=== PATIENT | male | born 1960 | race Two or more races ===

== ENCOUNTER 2019-06-17 07:49 | Day surgery (SDC) | payer BC ==
[2019-06-17] VITALS (10 sets, daily range): BP systolic 113–128; BP diastolic 68–83
[~2019-06-17] VITALS: Ht 172.7 cm; Wt 81.6 kg
[~2019-06-17 07:49] MED LIST: LR 1000ml 1,000 ML IVLG SCH
[2019-06-17] MEDS ORDERED: MULTIVITAMINS1 EAC2 ORAL (08:14)
[2019-06-17] MEDS ORDERED: Midazolam 2mg/2ml Inj ONE (08:36)
[2019-06-17] MEDS ORDERED: fentaNYL 100 mcg/2 mL IV ONE (08:36)
[2019-06-17] MEDS ORDERED: Propofol 200mg/20ml IV ONE (09:00)
[2019-06-17] MEDS ORDERED: LR 1000ml ONE (09:00)
--- NOTE | 2019-06-17 09:05 | Pre-Procedure Note/Attestation ---
Pre-Procedure Note/Attestation Complete Prior to Procedure Planned Procedure: not applicable Procedure Narrative: colon Indications for Procedure Pre-Operative Diagnosis: h/o polyps Attestation I attest that I discussed the nature of the procedure; its benefits; risks and complications; and alternatives (and the risks and benefits of such alternatives ), prior to the procedure, with the patient (or the patient's legal automobile rental representative). I attest that, if there was a reasonable possibility of needing a blood transfusion, the patient (or the patient's legal automobile rental representative) was given the [facility] standardized written summary, pursuant to the [place] Blood Safety Act ([place] Health and Safety Code # 1645, as amended). I attest that I re-evaluated the patient just prior to the surgery and that there has been no change in the patient's H&P, except as documented below: Juanpablo Vang MD Jun 17, 2019 09:05
--- NOTE | 2019-06-17 09:05 | Anethesia Preoperative Eval ---
Anesthesia Pre-op PMH/ROS General Date of Evaluation: Jun 17, 2019 Time of Evaluation: 09:00 Anesthesiologist: Teri ASA Score: ASA 2 Mallampati Score Class I : Soft palate, uvula, fauces, pillars visible Class II: Soft palate, uvula, fauces visible Class III: Soft palate, base of uvula visible Class IV: Only hard plate visible Mallampati Classification: Class II Surgeon: Dean Diagnosis: Colon CA screening Surgical Procedure: Cololnoscopy Anesthesia History: none Family History: no anesthesia problems Allergies: Coded Allergies: No Known Allergies (Unverified , 06/17/19) Medications: see eMAR Patient NPO?: Yes Past Medical History Cardiovascular: Denies: HTN, CAD, [place], valve dz, arrhythmia, other Pulmonary: Denies: asthma, COPD, AMRITA, other Gastrointestinal/Genitourinary: Reports: GERD; Denies: CRI, ESRD, other Neurologic/Psychiatric: Denies: dementia, CVA, depression/anxiety, TIA, other Endocrine: Denies: DM, hypothyroidism, steroids, other HEENT: Denies: cataract (L), cataract (R), glaucoma, [place] (L), [place] (R), other Musculoskeletal/Integumentary: Denies: OA, RA, DJD, DDD, edema, other PMH Narrative: as above PSxH Narrative: None Anesthesia Pre-op Phys. Exam Physician Exam Last Vital Signs Date Time Temp Pulse Resp B/P (MAP) Pulse Ox O2 Delivery O2 Flow Rate FiO2 06/17/19 08:17 Room Air 06/17/19 08:14 97.2 79 18 128/83 99 Constitutional: NAD Neurologic: CN 2-12 intact Cardiovascular: RRR, no M/R/G Respiratory: CTA Gastrointestinal: S/NT/ND Airway Exam Mallampati Score: Class II MO: full ROM: full Teeth: intact Dentures: no upper, no lower Anesthesia Pre-op A/P Studies Pre-op Studies: EKG - NSR Risk Assessment & Plan Assessment: ASA 2 Plan: MAC Status Change Before Surgery: No Hari Williamson MD Jun 17, 2019 09:05
--- NOTE | 2019-06-17 09:05 | Short Stay Surgery H&P ---
History of Present Illness History of Present Illness Chief Complaint see typed H&P attached HPI Norbertelliot Gutierrez is a 58 year old male who was admitted on for Colon Screening Patient History Allergies: Coded Allergies: No Known Allergies (Unverified , 06/17/19) Medication History Scheduled Multivitamins* (Multivitamins*), 1 TAB ORAL DAILY, (Reported) Physical Exam Vital Signs Last Vital Signs Date Time Temp Pulse Resp B/P (MAP) Pulse Ox O2 Delivery O2 Flow Rate FiO2 06/17/19 08:17 Room Air 06/17/19 08:14 97.2 79 18 128/83 99 Plan Attestation Are the patient's medical conditions optimized for surgery? Juanpablo Vang MD Jun 17, 2019 09:05
[2019-06-17] MEDS ORDERED: LR 1000ml 1,000 ML IVLG SCH (09:25)
[2019-06-17] MEDS ORDERED: fentaNYL 100 mcg/2 mL IV PRN (09:30)
--- NOTE | 2019-06-17 09:30 | Endoscopy Procedure Note ---
Endoscopy Procedure Note General Indication for Procedure: h/o polyp Operative Findings/Diagnosis: dim polyp at 25 - bx Specimen: yes Pt Tolerated Procedure Well: Yes Estimated Blood Loss: none Anesthesia Anesthesiologist: Belinda Anesthesia: MAC Medications Medication Given: see anesthesia record Inserted Devices Implant(s) used?: No GI Core Measures 50 yrs or older w/o bx or poly: No 10yrs. F/U recommended: No If not recommended, why?: Above average risk 18 years or older w/prev. colo: Yes <3yrs. since last colonoscopy: No Med reason:<3 yrs.: System Reason:<3 yrs.: Last colonoscopy >= to 3yrs: Yes Juanpablo Vang MD Jun 17, 2019 09:30
--- NOTE | 2019-06-17 09:31 | Brief Operative Note ---
Immediate Post Operative Note Operative Note Chief Complaint: h/o polyp Pre-op Diagnosis: h/o polyps Procedure: colon Post-op Diagnosis: polyp Surgeon: elio Anesthesiologist: kiki Specimen: yes Complications: none Fluids: recorded Implant(s) used?: No Juanpablo Vang MD Jun 17, 2019 09:31
--- NOTE | 2019-06-17 09:36 | Immediate Post-Op Evaluation ---
Immediate Post-Op Evalulation Immediate Post-Op Evalulation Procedure: Colonoscopy Date of Evaluation: Jun 17, 2019 Time of Evaluation: 09:35 IV Fluids: 600 Blood Products: none Estimated Blood Loss: none Urinary Output: none Blood Pressure Systolic: 127 Blood Pressure Diastolic: 76 Pulse Rate: 70 Respiratory Rate: 20 O2 Sat by Pulse Oximetry: 99 Temperature (Fahrenheit): 97.6 Pain Score (1-10): 1 Nausea: No Vomiting: No Complications none Patient Status: reacts, patent, none Hydration Status: adequate Hari Williamson MD Jun 17, 2019 09:36
--- NOTE | 2019-06-17 11:14 | 48 Hour Post Anesthesia Eval ---
Post Anesthesia Evaluation Procedure: Colonoscopy Date of Evaluation: Jun 17, 2019 Time of Evaluation: 11:13 Blood Pressure Systolic: 124 0: 68 Pulse Rate: 72 Respiratory Rate: 20 Temperature (Fahrenheit): 97.8 O2 Sat by Pulse Oximetry: 98 Airway: patent Nausea: No Vomiting: No Pain Intensity: 1 Hydration Status: adequate Cardiopulmonary Status: stable Mental Status/LOC: patient returned to baseline Follow-up Care/Observations: n/a Post-Anesthesia Complications: none Follow-up care needed: ready to discharge Hari Williamson MD Jun 17, 2019 11:14
--- NOTE | 2019-06-17 15:45 | Operative Note - Dictated ---
DATE OF OPERATION: 06/17/2019 GASTROENTEROLOGY PROCEDURE REPORT PROCEDURE: Colonoscopy with biopsy. SURGEON: Juanpablo Vang M.D. ANESTHESIA: Please see the separate anesthesiologist notes for details. PRE-ENDOSCOPIC DIAGNOSIS: History of colonic polyps. POST-ENDOSCOPIC DIAGNOSIS: Diminutive polyp in the sigmoid colon at 25 cm, status post biopsy removal. DESCRIPTION OF PROCEDURE: The procedure its risks, indications, alternatives, and possible complications including but not limited to bleeding, infection, perforation, , and anesthesia complications were explained to the patient and informed consent was obtained. The patient was then sedated in the left lateral decubitus position and a rectal exam was done, which was unremarkable. The colonoscope was introduced into the rectum and advanced to the cecum without difficulty. The cecum was identified by the appearance of the ileocecal valve. The colonoscope was then gradually withdrawn and mucosa examined carefully. Examination was concluded with the retroflexed view of the rectum. There was a diminutive polyp in the sigmoid colon at 25 cm, which was biopsied off. There were otherwise no abnormalities. The patient was sent to Recovery in good condition. COMPLICATIONS: None. RECOMMENDATIONS: 1. Follow up biopsy results. 2. Outpatient followup. Juanpablo Vang M.D. DR: BLANCA JOB#: [id number] CC:
== END 2019-06-17 10:40 | disposition home or self-care (01) ==
LOC: GAS 07:49
DX: K63.5 Polyp of colon (principal); K21.9 Gastro-esophageal reflux disease without esophagitis
CPT/HCPCS: 45380; J2250; J2704; J3010; J7120; 94003; 94150